=== PATIENT | female | born 1955 | race Caucasian/White ===

== ENCOUNTER → 2017-06-04 | Outpatient (CLI) | payer BC | END | disposition home or self-care (01) | LOC: CFH 08:27 | PROVIDERS: ATTEND Internal Medicine Hematology & Oncology | DX: Z13.820 Encounter for screening for osteoporosis (principal); M85.88 Other specified disorders of bone density and structure, other site; C50.912 Malignant neoplasm of unspecified site of left female breast | CPT/HCPCS: 77080 ==